=== PATIENT | male | born 1950 | race Asian ===

== ENCOUNTER → 2018-07-14 | Outpatient (CLI) | payer MEDICARE ==
[~2018-07-14] MED LIST: ACET-66 PO; INSLAN SQ; INSU100C6 SQ; LOSA50TA2 PO; METF500T PO; SIMV20TA6 PO
== END | disposition home or self-care (01) ==
LOC: RADPV 14:24
PROVIDERS: ATTEND Physician Assistant
DX: M17.0 Bilateral primary osteoarthritis of knee (principal); M25.462 Effusion, left knee; M25.461 Effusion, right knee; M76.9 Unspecified enthesopathy, lower limb, excluding foot; N18.9 Chronic kidney disease, unspecified; Z79.82 Long term (current) use of aspirin
CPT/HCPCS: 76770